=== PATIENT | female | born 1985 | race Caucasian/White ===

== ENCOUNTER 2016-09-04 19:05 | Emergency (ER) | payer OTHER ==
[~2016-09-04] VITALS: Ht 167.6 cm; Wt 120.5 kg
[~2016-09-04 19:05] MED LIST: CETI10CA PO; GUAI120S26 PO; IBUP-1542 PO; LORA-441 PO; PNV1TABL43 PO; ZOF8 PO
[2016-09-04 19:09] VITALS: Ht 167.6 cm; Wt 120.5 kg
[2016-09-04] MEDS ORDERED: KETOROLAC 60 MG INJ IM STA (20:08)
--- NOTE | 2016-09-04 20:18 | ERD ---
ER Documentation Chief Complaint Date/Time DATE: 09/04/16 TIME: 20:12 Chief Complaint headache w/ diziness x 2 days, headache w/ lights on HPI 31-year-old female complaining of headache 2 days. Describes it is a pressure- like sensation across her forehead and temples. Headache is not relieved by Tylenol, last dose, was taken yesterday. Patient also complaining of feeling dizzy, stating that she feels like she about to fall while walking. She has blurry vision, more blurry than usual. In addition patient complaining of shortness of breath on exertion. Patient stated that she has history of anemia , and alpha thalassemia trait. Denies fever or chills. Denies chest pain. Denies leg pain or swelling. ROS All systems reviewed and are negative except as per history of present illness. Medications Home Meds Active Scripts Acetaminophen/Caffeine (Excedrin Tension Headache Cplt) 1 Each Tablet, 1 EACH PO Q6, #30 TAB Prov:LISBETH MARC NP 09/04/16 Lorazepam* (Ativan*) 0.5 Mg Tablet, 0.5 MG PO BID Y for ANXIETY, #12 TAB Prov:HIRAM MALCOLM MD 05/10/15 Ondansetron Hcl* (Zofran* ODT) 8 mg -ODT Tab.disper, 8 MG PO Q6 Y for NAUSEA AND /OR VOMITING, #6 TAB Prov:HIRAM MALCOLM MD 05/10/15 Ibuprofen* (Ibuprofen*) 600 Mg Tablet, 600 MG PO Q6H Y for pa, #30 TAB Prov:FRANDY BEAVER NP 04/27/15 Cetirizine Hcl* (Zyrtec*) 10 Mg Capsule, 10 MG PO DAILY, #30 TAB.CHEW Prov:FRANDY BEAVER NP 04/27/15 Acndwyenfcy-D-Dtfiiemzrn Hb* (Guaifenesin* DM Syrup) 120 Ml Syrup, 10 ML PO Q4H Y for COUGH, #120 ML Prov:FRANDY BEAVER NP 04/27/15 Reported Medications Vit/Fe Fumarate/Fa* ( Vitamin Tablet*) 1 Tab Tablet, 1 TAB PO DAILY, TAB 08/16/14 Allergies Allergies: Coded Allergies: No Known Allergy (Verified , 10/25/14) PMhx/Soc History of mild anemia History of Surgery: No Anesthesia Reaction: No Hx Neurological Disorder: No Hx Respiratory Disorders: No Hx Cardiac Disorders: No Hx Psychiatric Problems: No Hx Miscellaneous Medical Probl: No Hx Alcohol Use: No Hx Substance Use: No Hx Tobacco Use: No Smoking Status: Never smoker Physical Exam Vitals Vital Signs Date Time Temp Pulse Resp B/P Pulse Ox O2 Delivery O2 Flow Rate FiO2 09/04/16 21:40 98.9 80 18 134/63 99 Room Air 09/04/16 21:30 80 09/04/16 19:09 98.5 101 20 174/77 99 Physical Exam General: Well-developed, well-nourished, conscious and coherent, in no distress Skin: Warm and dry without rash, good texture and turgor Head: Normocephalic without evidence of trauma Eyes: Sclera and conjunctivae normal; pupils equal, round, and reactive to light; extraocular movements are intact Neck: Supple without meningismus or adenopathy. Carotids are equal. Trachea midline. No bruits or JVD Chest: Normal AP diameter. Good expansion without retractions. Nontender. Lungs are clear to auscultate bilaterally with good tidal volume Heart: Regular rate and rhythm. No murmur, rub, or gallops heard Abdomen: Soft and nontender without masses, guarding, or rebound. Bowel sounds are active. No hepatosplenomegaly Extremities: Full range of motion. Good strength bilaterally. No clubbing, cyanosis, or edema. Peripheral pulses are intact. Sensation intact Neuro: Alert and oriented 4; GCS 15. Cranial nerves II - XII intact. Motor sensory exam nonfocal. Moves all extremities. Deep tendon reflexes 2+ in all extremities. Speech clear. No pronator drift. Gait steady. Result Diagram: 09/04/162021 Results 24 hrs Laboratory Tests Test 09/04/16 20:22 White Blood Count 18.210^3/ul Red Blood Count 5.4010^6/ul Hemoglobin 10.1g/dl Hematocrit 34.9% Mean Corpuscular Volume 64.6fl Mean Corpuscular Hemoglobin 18.7pg Mean Corpuscular Hemoglobin Concent 28.9g/dl Red Cell Distribution Width 19.9% Platelet Count 07048^3/UL Mean Platelet Volume 9.6fl Neutrophils % 71.7% Lymphocytes % 22.5% Monocytes % 3.6% Eosinophils % 1.4% Basophils % 0.3% Nucleated Red Blood Cells % 0.0/100WBC Neutrophils # 13.010^3/ul Lymphocytes # 4.110^3/ul Monocytes # 0.710^3/ul Eosinophils # 0.310^3/ul Basophils # 0.110^3/ul Nucleated Red Blood Cells # 0.010^3/ul Current Medications Medications (Trade) Dose Ordered Sig/Alexys Route PRN Reason Start Time Stop Time Status Last Admin Dose Admin Ketorolac Tromethamine (Toradol) 60 mg ONCE STAT IM 09/04/16 20:08 09/04/16 20:12 DC 09/04/16 20:23 Metoclopramide HCl (Reglan) 10 mg ONCE ONCE IM 09/04/16 20:30 09/04/16 20:31 DC 09/04/16 20:23 Diphenhydramine HCl (Benadryl) 50 mg ONCE ONCE IM 09/04/16 20:30 09/04/16 20:31 DC 09/04/16 20:23 Procedures/MDM Well-appearing 31-year-old female presented ED was complaining a headache. Toradol, Benadryl, and Reglan IM given to the patient in the ED. Patient reports improvement headache after the medications. Patient had normal neuro exam, she does have muscle tightness in her sternocleidomastoid and upper trapezius. Likely her headache is due to tension headache. Differentials considered: Migraine, cluster headache, tension headache, sinus or dental infection, TMJ syndrome, pseudotumor cerebri, meningitis, encephalitis , giant cell arteritis, glaucoma, subarachnoid hemorrhage, subdural or epidural hematoma, intracranial bleeding or tumor. Patient also complaining of shortness breath on exertion. She has history of anemia. CBC was obtained, she does have a mild anemia with hemoglobin at 10.1. EKG: Normal sinus rhythm, normal axis. No ST segment elevation or depression. No ectopic beats. No QT prolongation. No other EKG abnormalities. EKG read by Dr. Malcolm. Patient's heart rate was initially 101, it has reduced to 80 after rest and medication. PERC Criteria Assessment: Age > 50: No HR > 100: No 02 < 95%: No H/o DVT/PE: No Recent trauma/surgery: No Hemoptysis: No Exogenous Estrogen: No Unilateral Leg swelling: No Pretest probability > 15%: No [Less than 2% risk of PE. No further work up is necessary] Low suspicion for acute coronary syndrome, PE, pneumothorax, pneumonia, or aortic dissection. Patient appears well, stable for discharge and outpatient management. Medical decision making shared with patient and family. Education provided to patient and family. Patient and family expressed understanding of the plan. Medications on discharge: Excedrin tension headache. Follow-up: Primary care provider in 2-3 days or return to ED if worse. Departure Diagnosis: Primary Impression: Headache Headache type: tension-type Headache chronicity pattern: acute headache Intractability: not intractable Qualified Code: G44.209 - Acute non intractable tension-type headache Additional Impression: Anemia Anemia type: unspecified type Qualified Code: D64.9 - Anemia, unspecified type Condition: LISBETH Carvajal NP September 04, 2016 20:18
[2016-09-04] MEDS ORDERED: METOCLOPRAMIDE 10 MG INJ IM ONE (20:30)
[2016-09-04] MEDS ORDERED: DIPHENHYDRAMINE 50 MG INJ IM ONE (20:30)
[2016-09-04 20:31] LABS: ADD SCAN DIFF NO
[2016-09-04 20:33] LABS: ABNORMAL IP MESSAGE 1; BASOPHIL # 0.1 10^3/ul (0.0-0.1); BASOPHILS % 0.3 % (0.0-2.0); EOSINOPHILS # 0.3 10^3/ul (0.0-0.5); EOSINOPHILS % 1.4 % (0.0-7.0); HEMATOCRIT 34.9 % (37.0-47.0); HEMOGLOBIN 10.1 g/dl (12.0-16.0); LYMPHOCYTES # 4.1 10^3/ul (0.8-2.9); LYMPHOCYTES % 22.5 % (15.0-51.0); MEAN CORPUSCULAR HEMOGLOBIN 18.7 pg (29.0-33.0); MEAN CORPUSCULAR HGB CONC 28.9 g/dl (32.0-37.0); MEAN CORPUSCULAR VOLUME 64.6 fl (82.0-101.0); MEAN PLATELET VOLUME 9.6 fl (7.4-10.4); MONOCYTE # 0.7 10^3/ul (0.3-0.9); MONOCYTES % 3.6 % (0.0-11.0); NEUTROPHILS % 71.7 % (39.0-77.0); PLATELET COUNT 500 10^3/UL (140-415); RED CELL DISTRIBUTION WIDTH 19.9 % (11.5-14.5); WHITE BLOOD COUNT 18.2 10^3/ul (4.8-10.8)
[2016-09-04] MEDS ORDERED: ACET1TAB16 PO (21:32)
[2016-09-04 21:40] VITALS: BP 134/63; PULSE 80; RESP 18; TEMP 98.9
== END 2016-09-04 21:40 | disposition home or self-care (01) ==
LOC: FTE 19:05
DX: G44.209 Tension-type headache, unspecified, not intractable (principal); D64.9 Anemia, unspecified; R40.2412 Glasgow coma scale score 13-15, at arrival to emergency department; R94.31 Abnormal electrocardiogram [ECG] [EKG]
CPT/HCPCS: 85025; 93005; 96372; J1200; J1885; J2765; Z7502

== ENCOUNTER 2016-11-04 11:56 | Emergency (ER) | payer OTHER ==
[~2016-11-04] VITALS: Ht 157.5 cm; Wt 117.5 kg
[~2016-11-04 11:56] MED LIST changes: +ACET1TAB16 PO
[2016-11-04 12:03] VITALS: Ht 157.5 cm; Wt 117.5 kg
[2016-11-04] MEDS ORDERED: SOD CHLORIDE 0.9% 1,000 ML IV STA (12:52)
[2016-11-04] MEDS: ONDANSETRON 4 MG INJ IV STA ×2 (13:03→13:16)
[2016-11-04] MEDS: FAMOTIDINE 20 MG INJ IV STA ×2 (13:04→13:16)
[2016-11-04] MEDS: KETOROLAC 30 MG INJ IV STA ×2 (13:04→13:15)
[2016-11-04] MEDS ORDERED: METOCLOPRAMIDE 10 MG INJ IV ONE (13:30)
[2016-11-04] MEDS ORDERED: ACETAMINOPHEN 325 MG TAB PO ONE (13:30)
[2016-11-04 13:33] LABS: BASOPHILS % 0.3 % (0.0-2.0); EOSINOPHILS # 0.2 10^3/ul (0.0-0.5); EOSINOPHILS % 1.1 % (0.0-7.0); HEMATOCRIT 37.4 % (37.0-47.0); LYMPHOCYTES # 3.5 10^3/ul (0.8-2.9); LYMPHOCYTES % 23.4 % (15.0-51.0); MEAN CORPUSCULAR HEMOGLOBIN 19.4 pg (29.0-33.0); MEAN CORPUSCULAR HGB CONC 29.4 g/dl (32.0-37.0); MEAN PLATELET VOLUME 9.9 fl (7.4-10.4); MONOCYTE # 0.7 10^3/ul (0.3-0.9); MONOCYTES % 4.3 % (0.0-11.0); NEUTROPHIL # 10.5 10^3/ul (1.6-7.5); NEUTROPHILS % 70.4 % (39.0-77.0); PLATELET COUNT 404 10^3/UL (140-415); RED BLOOD COUNT 5.67 10^6/ul (4.20-5.40); RED CELL DISTRIBUTION WIDTH 19.7 % (11.5-14.5)
[2016-11-04 13:49] LABS: ALBUMIN 4.2 g/dl (3.3-4.9); ALBUMIN/GLOBULIN RATIO 1.1; CALCIUM 9.4 mg/dl (8.4-10.2); CREATININE 0.61 mg/dl (0.44-1.00)
[2016-11-04 14:03] LABS: ADD UMIC NO; UR ASCORBIC ACID NEGATIVE (NEGATIVE); UR BILIRUBIN (Dip) NEGATIVE (NEGATIVE); UR BLOOD (Dip) NEGATIVE (NEGATIVE); UR CLARITY CLEAR (CLEAR); UR COLOR STRAW (YELLOW); UR GLUCOSE (Dip) NEGATIVE (NEGATIVE); UR KETONES (Dip) NEGATIVE (NEGATIVE); UR LEUKOCYTE ESTERASE (Dip) NEGATIVE Leu/ul (NEGATIVE); UR NITRITE (Dip) NEGATIVE (NEGATIVE); UR SPECIFIC GRAVITY (Dip) 1.003 (1.003-1.030); UR TOTAL PROTEIN (Dip) NEGATIVE (NEGATIVE); UR UROBILINOGEN (Dip) NEGATIVE (NEGATIVE)
--- NOTE | 2016-11-04 14:19 | RADRPT ---
PROCEDURE: US OB. CLINICAL INDICATION: TECHNIQUE: Transabdominal and transvaginal views of the pelvis are available for review. COMPARISON: No prior studies are available for comparison. FINDINGS: An intrauterine gestational sac containing a pole and yolk sac is present. The crown-rump morgan gth measures 5.3 cm which corresponds to a gestational age of 12 weeks 0 days. heart rate:161 bpm Ultrasound estimated gestational age:12 weeks 0 days EGD: 05/19/2017 No ovarian or adnexal mass lesion is seen. There is no free fluid. IMPRESSION: 1. Single live intrauterine with an estimated gestational age of 12 weeks 0 days. 2. AKSHAT of 05/19/2017 RPTAT: H[facility] .Libra Coombs MD, Date Time Electronically viewed and signed by .Libra Coombs MD, on 11/04/2016 14:19 .M/
--- NOTE | 2016-11-04 14:21 | ERD ---
ER Documentation Chief Complaint Date/Time DATE: 11/04/16 Chief Complaint Nausea, Vomiting, Nasal congestion, Cough HPI The patient is a 31-year-old female who presents to the Emergency Department with complaint of cough, congestion, nausea and vomiting. The patient reports that three days ago she developed nasal congestion, with associated mildly- productive cough of clear-colored sputum, body aches, fevers and sore throat. She notes a subjective tactile fever last night, though did not check her temperature with a thermometer. She otherwise denies any ear pain, neck pain, neck stiffness or new rashes. Denies wheezing, stridor, or shortness of breath. Denies chest pain or palpitations. She admits to several sick contacts with similar symptoms over the past week. Additionally, the patient reports that she has been experiencing unrelated nausea and vomiting for the past week. She denies any exacerbating or alleviating factors. Denies any associated abdominal pain, pelvic pain, dysuria, hematuria, flank pain, vaginal bleeding or new vaginal discharge. The patient's last menstrual period was 07/15/2016. Since, she has had several episodes of spotting, but no formal period. However, she notes no , as she took a test several weeks ago, which was noted to be negative. No other complaints at this time. ROS All systems reviewed and are negative except as per history of present illness. Medications Home Meds Active Scripts Acetaminophen* (Tylenol*) 325 Mg Tablet, 1 TAB PO Q6 Y for PAIN AND OR ELEVATED TEMP, #20 TAB Prov:DALILA VALDES PA-C 11/04/16 Azithromycin* (Zithromax*) 250 Mg Tablet, 250 MG PO .TRECK DIRECTED, #6 TAB TAKE 500 MG (2 TABS) THE FIRST DAY THEN 250 MG (1 TAB) DAYS 2-5 Prov:DALILA VALDES PA-C 11/04/16 Acetaminophen/Caffeine (Excedrin Tension Headache Cplt) 1 Each Tablet, 1 EACH PO Q6, #30 TAB Prov:LISBETH MARC NP 09/04/16 Lorazepam* (Ativan*) 0.5 Mg Tablet, 0.5 MG PO BID Y for ANXIETY, #12 TAB Prov:HIRAM DOUGLAS MD 05/10/15 Ondansetron Hcl* (Zofran* ODT) 8 mg -ODT Tab.disper, 8 MG PO Q6 Y for NAUSEA AND /OR VOMITING, #6 TAB Prov:HIRAM DOUGLAS MD 05/10/15 Ibuprofen* (Ibuprofen*) 600 Mg Tablet, 600 MG PO Q6H Y for pa, #30 TAB Prov:FRANDY BEAVER NP 04/27/15 Cetirizine Hcl* (Zyrtec*) 10 Mg Capsule, 10 MG PO DAILY, #30 TAB.CHEW Prov:FRANDY BEAVER NP 04/27/15 Pwvvezjdppa-I-Umevznftkx Hb* (Guaifenesin* DM Syrup) 120 Ml Syrup, 10 ML PO Q4H Y for COUGH, #120 ML Prov:FRANDY BEAVER NP 04/27/15 Reported Medications Vit/Fe Fumarate/Fa* ( Vitamin Tablet*) 1 Tab Tablet, 1 TAB PO DAILY, TAB 08/16/14 Allergies Allergies: Coded Allergies: No Known Allergy (Verified , 11/04/16) PMhx/Soc History of Surgery: No Anesthesia Reaction: No Hx Neurological Disorder: No Hx Respiratory Disorders: No Hx Cardiac Disorders: No Hx Psychiatric Problems: No Hx Miscellaneous Medical Probl: No Hx Alcohol Use: No Hx Substance Use: No Hx Tobacco Use: No Smoking Status: Never smoker Physical Exam Vitals Vital Signs Date Time Temp Pulse Resp B/P Pulse Ox O2 Delivery O2 Flow Rate FiO2 11/04/16 12:03 98.3 79 18 127/70 Physical Exam GENERAL: Well-developed, well-nourished, in no acute distress HEENT: Head is normocephalic, atraumatic. No scleral pallor or icterus. Pupils equal, round and reactive to light. Extraocular movements intact. Conjunctiva pink. Nasal congestion. Bilaterally tympanic membranes are clear with no evidence of erythema, effusion or dulling of the light reflex. Moist mucous membranes. No pharyngeal erythema or exudates. Uvula is midline. NECK: Supple. No masses, no tenderness, no lymphadenopathy. Trachea midline. No nuchal rigidity. Full range of motion. RESPIRATORY: Prolonged expiratory phase. No rales, rhonchi or wheezing. Symmetric expansion. No accessory muscle use. Normal expiratory effort. Speaking in full sentences. CARDIOVASCULAR: Regular rate and rhythm. S1 and S2 normal. No murmurs, rubs, or gallops. GASTROINTESTINAL: Abdomen is soft, nontender, and nondistended. No guarding, no rebound tenderness. Normal bowel sounds. No gross peritonitis. Negative Arevalo' s sign. No tenderness at McBurney's point. FLANK: No CVA tenderness, no mass or swelling. BACK: No midline tenderness. EXTREMITIES: No clubbing, cyanosis, or edema. Normal skin perfusion. Moving all extremities. Muscle tone is normal. No focal swelling or erythema. Distal pulses are palpable, 2+ bilaterally. Capillary refill is less than 2 seconds. NEUROLOGIC: The patient is alert, awake, and oriented x 3. No focal neurologic deficits. INTEGUMENT: Skin is clean, dry and intact. No rashes, lesions or petechiae present. PSYCHIATRIC: Appropriate; Cooperative. Result Diagram: 11/04/16 1318 11/04/16 1318 Results 24 hrs Laboratory Tests Test 11/04/16 13:00 11/04/16 13:18 Urine Color STRAW Urine Clarity CLEAR Urine pH 8.0 Urine Specific Beaver 1.003 Urine Ketones NEGATIVEmg/dL Urine Nitrite NEGATIVEmg/dL Urine Bilirubin NEGATIVEmg/dL Urine Urobilinogen NEGATIVEmg/dL Urine Leukocyte Esterase NEGATIVELeu/ul Urine Hemoglobin NEGATIVEmg/dL Urine Glucose NEGATIVEmg/dL Urine Total Protein NEGATIVEmg/dl Beta HCG, Quantitative 64533.0mIU/ml White Blood Count 15.010^3/ul Red Blood Count 5.6710^6/ul Hemoglobin 11.0g/dl Hematocrit 37.4% Mean Corpuscular Volume 66.0fl Mean Corpuscular Hemoglobin 19.4pg Mean Corpuscular Hemoglobin Concent 29.4g/dl Red Cell Distribution Width 19.7% Platelet Count 85197^3/UL Mean Platelet Volume 9.9fl Neutrophils % 70.4% Lymphocytes % 23.4% Monocytes % 4.3% Eosinophils % 1.1% Basophils % 0.3% Nucleated Red Blood Cells % 0.0/100WBC Neutrophils # 10.510^3/ul Lymphocytes # 3.510^3/ul Monocytes # 0.710^3/ul Eosinophils # 0.210^3/ul Basophils # 0.010^3/ul Nucleated Red Blood Cells # 0.010^3/ul Sodium Level 144mmol/L Potassium Level 4.0mmol/L Chloride Level 102mmol/L Carbon Dioxide Level 27mmol/L Anion Gap 19 Blood Urea Nitrogen 6mg/dl Creatinine 0.61mg/dl Glucose Level 89mg/dl Calcium Level 9.4mg/dl Total Bilirubin 0.0mg/dl Direct Bilirubin 0.00mg/dl Indirect Bilirubin 0.0mg/dl Aspartate Amino Transf (AST/SGOT) 16IU/L Alanine Aminotransferase (ALT/SGPT) 20IU/L Alkaline Phosphatase 100IU/L Total Protein 8.0g/dl Albumin 4.2g/dl Globulin 3.80g/dl Albumin/Globulin Ratio 1.10 Lipase 65U/L Current Medications Medications (Trade) Dose Ordered Sig/Alexys Route PRN Reason Start Time Stop Time Status Last Admin Dose Admin Sodium Chloride (NS) 1,000 ml @ 1,000 mls/hr Q1H STAT IV 11/04/16 12:52 11/04/16 13:51 DC 11/04/16 13:03 Ondansetron HCl (Zofran Inj) 4 mg ONCE STAT IV 11/04/16 12:52 11/04/16 13:18 DC Famotidine (Pepcid Iv) 20 mg ONCE STAT IV 11/04/16 12:52 11/04/16 12:54 DC Ketorolac Tromethamine (Toradol) 30 mg ONCE STAT IV 11/04/16 12:52 11/04/16 13:18 DC Metoclopramide HCl (Reglan) 10 mg ONCE ONCE IV 11/04/16 13:30 11/04/16 13:31 DC 11/04/16 13:25 Acetaminophen (Tylenol Tab) 650 mg ONCE ONCE PO 11/04/16 13:30 11/04/16 13:31 DC 11/04/16 13:25 Procedures/MDM DIAGNOSTIC TESTS AND INTERPRETATION: Urine : POSITIVE Beta hCG quantitative: 51,763. PROCEDURE: US OB. CLINICAL INDICATION: TECHNIQUE: Transabdominal and transvaginal views of the pelvis are available for review. COMPARISON: No prior studies are available for comparison. FINDINGS: An intrauterine gestational sac containing a pole and yolk sac is present. The crown-rump length measures 5.3 cm which corresponds to a gestational age of 12 weeks 0 days. heart rate: 161 bpm Ultrasound estimated gestational age: 12 weeks 0 days EGD: 05/19/2017 No ovarian or adnexal mass lesion is seen. There is no free fluid. IMPRESSION: 1. Single live intrauterine with an estimated gestational age of 12 weeks 0 days. 2. AKSHAT of 05/19/2017 .Libra Coombs MD, MD Date Time Electronically viewed and signed by .Libra Coombs MD, MD on 11/04/2016 14:19 MEDICAL DECISION MAKING: This is a 31-year-old female presenting to the Emergency Department complaining of fever, generalized body aches, nasal congestion and productive cough. On physical examination the patient had a prolonged expiratory phase, but with equal breath sounds auscultated. No rales , rhonchi or wheezing were noted. She was afebrile with no tachycardia, no tachypnea, no signs of respiratory distress. She had no retractions, no increased work of breathing, no nasal flaring, no accessory muscle use. She exhibited no altered mental status, neurologic deficits or meningeal signs. Differential diagnosis includes, but is not limited to, pneumonia, pulmonary edema, sinusitis, foreign body, pertussis, upper respiratory infection, asthma, allergic rhinitis, GERD, bronchitis, allergic reaction, influenza, pharyngitis. Clinical presentation most consistent with acute bronchitis, possibly bacterial in etiology. No evidence of apnea, respiratory failure, dehydration, meningitis or other life-threatening etiology. The patient is well-appearing. He had no clinical evidence of pneumonia. Patient's neck was supple, with no altered mental status, and therefore I doubt meningitis. Oropharynx was clear, with no erythema, exudates, petechiae, no associated cervical lymphadenopathy, and therefore I doubt streptococcal pharyngitis. Tympanic membranes were clear bilaterally with no erythema or bulging noted, and therefore I doubt otitis media. x Patient also reported recent nausea and vomiting. Abdominal examination benign, with no evidence of acute/surgical abdomen. Urinalysis with no nitrites, no urine leukocyte esterase, no evidence of urinary tract infection or pyelonephritis. Urine noted to be positive. possibly the cause of the patient's nausea/vomiting. Beta hCG 51,763. Patient is Rh (+). Ultrasound imaging performed, which revealed a live intrauterine gestation of 12 weeks 0 days. After rest and administration of fluids and Reglan, the patient reports no new complaints and reports feeling better, with no shortness of breath or respiratory distress. Upon my review and interpretation of the patient's presentation and ER course, I believe the patient's symptoms are most consistent with acute bronchitis, possibly bacterial in etiology. Given positive status, will forego x- ray imaging. However, will treat patient for possible bacterial etiology with Z- alix. At this time, the patient is in stable condition and not experiencing any current nausea, vomiting, shortness of breath, wheezing or any signs of respiratory distress, and therefore she can be discharged home with strict return precautions for signs of deteriorating or worsening condition. The patient is advised to follow up with an SERVICE CONSULTANT within 2-3 days for reevaluation and further management or return to the ER sooner for any worsening symptoms. I shared my medical decision making and plan with the patient at length and in great detail, and she verbally understands and agrees with the plan for further observation and care as an outpatient. At the time of discharge all questions were answered. Departure Diagnosis: Primary Impression: First trimester Additional Impressions: Acute bronchitis Bronchitis organism: unspecified organism Qualified Code: J20.9 - Acute bronchitis, unspecified organism Nausea and vomiting Vomiting type: unspecified Vomiting Intractability: non-intractable Qualified Code: R11.2 - Non-intractable vomiting with nausea, unspecified vomiting type Condition: Stable Patient Instructions: Acute Bronchitis, Adapting to : First Trimester , , New Dx Additional Instructions: Follow up with your primary medical provider and SERVICE CONSULTANT within 2-3 days for reevaluation and further management. Return to the ED sooner for any new or worsening symptoms. DALILA VALDES PA-C Nov 04, 2016 14:21
[2016-11-04] MEDS ORDERED: ACET325T33 PO (14:30)
[2016-11-04] MEDS ORDERED: AZIT250T94 PO (14:30)
== END 2016-11-04 14:47 | disposition home or self-care (01) ==
LOC: FTE 11:56
DX: O99.511 Diseases of the respiratory system complicating pregnancy, first trimester (principal); J20.9 Acute bronchitis, unspecified; Z3A.12 12 weeks gestation of pregnancy
CPT/HCPCS: 36415; 76801; 80053; 81003; 83690; 84702; 85025; 86900; 86901; 96374; J2765; J7030; Z7502; Z7610; J1885; J2405

== ENCOUNTER 2016-12-04 21:40 | Emergency (ER) | payer OTHER ==
[~2016-12-04] VITALS: Ht 162.6 cm; Wt 117.0 kg
[~2016-12-04 21:40] MED LIST changes: +ACET325T33 PO; +AZIT250T94 PO
[2016-12-04 21:45] VITALS: Ht 162.6 cm; Wt 117.0 kg
--- NOTE | 2016-12-04 23:04 | ERD ---
ER Documentation Chief Complaint Date/Time DATE: 12/04/16 TIME: 23:01 Chief Complaint 16 wks , pelvic pain x 1 day HPI 16 week w/ pelvic pain, pain is worse with walking, pt has not taken any Tylenol of symptomatic relief denies vomiting, fever, vaginal bleeding or D/ C symptoms started this morning. ROS All systems reviewed and are negative except as per history of present illness. Medications Home Meds Active Scripts Acetaminophen* (Tylenol*) 325 Mg Tablet, 1 TAB PO Q6 Y for PAIN AND OR ELEVATED TEMP, #20 TAB Prov:DALILA VALDES PA-C 11/04/16 Azithromycin* (Zithromax*) 250 Mg Tablet, 250 MG PO .ZPACK DIRECTED, #6 TAB TAKE 500 MG (2 TABS) THE FIRST DAY THEN 250 MG (1 TAB) DAYS 2-5 Prov:DALILA VALDES PA-C 11/04/16 Acetaminophen/Caffeine (Excedrin Tension Headache Cplt) 1 Each Tablet, 1 EACH PO Q6, #30 TAB Prov:LISBETH MARC NP 09/04/16 Lorazepam* (Ativan*) 0.5 Mg Tablet, 0.5 MG PO BID Y for ANXIETY, #12 TAB Prov:HIRAM DOUGLAS MD 05/10/15 Ondansetron Hcl* (Zofran* ODT) 8 mg -ODT Tab.disper, 8 MG PO Q6 Y for NAUSEA AND /OR VOMITING, #6 TAB Prov:HIRAM DOUGLAS MD 05/10/15 Ibuprofen* (Ibuprofen*) 600 Mg Tablet, 600 MG PO Q6H Y for pa, #30 TAB Prov:PAMELA HAMM NP 04/27/15 Cetirizine Hcl* (Zyrtec*) 10 Mg Capsule, 10 MG PO DAILY, #30 TAB.CHEW Prov:PAMELA HAMM NP 04/27/15 Gdyhwillnxq-Z-Hjsimhfeag Hb* (Guaifenesin* DM Syrup) 120 Ml Syrup, 10 ML PO Q4H Y for COUGH, #120 ML Prov:PAMELA HAMM NP 04/27/15 Reported Medications Vit/Fe Fumarate/Fa* ( Vitamin Tablet*) 1 Tab Tablet, 1 TAB PO DAILY, TAB 5/4/15 Allergies Allergies: Coded Allergies: No Known Allergy (Verified , 11/04/16) PMhx/Soc Medical and Surgical Hx: pt denies Medical Hx, pt denies Surgical Hx History of Surgery: No Anesthesia Reaction: No Hx Neurological Disorder: No Hx Respiratory Disorders: No Hx Cardiac Disorders: No Hx Psychiatric Problems: No Hx Miscellaneous Medical Probl: No Hx Alcohol Use: No Hx Substance Use: No Hx Tobacco Use: No Smoking Status: Never smoker Physical Exam Vitals Vital Signs Date Time Temp Pulse Resp B/P Pulse Ox O2 Delivery O2 Flow Rate FiO2 12/04/16 21:45 97.8 89 20 141/58 99 VSS trage notes reviewed Physical Exam Const: Well-nourished well-appearing well-hydrated no acute Head: Eyes: ENT: Neck: Resp: Respirations even and unlabored no respiratory distress Cardio: Abd: 's abdomen Skin: Back: No CVA tenderness Ext: Neur: Awake and alert Psych: Normal Mood and Affect Result Diagram: 12/04/162 Results 24 hrs Laboratory Tests Test 12/04/16 23:00 12/04/16 23:12 Urine Color YELLOW Urine Clarity SLIGHTLY CLOUDY Urine pH 6.0 Urine Specific [place] 1.019 Urine Ketones NEGATIVEmg/dL Urine Nitrite NEGATIVEmg/dL Urine Bilirubin NEGATIVEmg/dL Urine Urobilinogen NEGATIVEmg/dL Urine Leukocyte Esterase NEGATIVELeu/ul Urine Microscopic RBC 1/HPF Urine Microscopic WBC 1/HPF Urine Squamous Epithelial Cells FEW/HPF Urine Bacteria FEW/HPF Urine Mucus FEW/HPF Urine Hemoglobin NEGATIVEmg/dL Urine Glucose NEGATIVEmg/dL Urine Total Protein NEGATIVEmg/dl White Blood Count 15.210^3/ul Red Blood Count 5.2610^6/ul Hemoglobin 10.4g/dl Hematocrit 34.6% Mean Corpuscular Volume 65.8fl Mean Corpuscular Hemoglobin 19.8pg Mean Corpuscular Hemoglobin Concent 30.1g/dl Red Cell Distribution Width 20.4% Platelet Count 42945^3/UL Mean Platelet Volume 10.2fl Neutrophils % 70.0% Lymphocytes % 25.1% Monocytes % 3.0% Eosinophils % 1.1% Basophils % 0.3% Nucleated Red Blood Cells % 0.0/100WBC Neutrophils # (Manual) 1110^3/ul Lymphocytes # 3.810^3/ul Monocytes # 0.510^3/ul Eosinophils # 0.210^3/ul Basophils # 0.110^3/ul Nucleated Red Blood Cells # 0.010^3/ul Beta HCG, Quantitative 07142.0mIU/ml Current Medications Medications (Trade) Dose Ordered Sig/Alexys Route PRN Reason Start Time Stop Time Status Last Admin Dose Admin Acetaminophen (Tylenol Tab) 650 mg ONCE ONCE PO 12/04/16 23:30 12/04/16 23:31 DC 12/04/16 23:14 Interpretation text CBC shows no evidence of hemorrhage or infection W BC's are elevated this is not an abnormal finding in Urinalysis negative for evidence of infection no leukocytosis nitrates or hematuria. Procedures/MDM PROCEDURE: US OB. CLINICAL INDICATION: 31 years of age, female. Pain. TECHNIQUE: Multiple sonographic images of the pelvis were obtained. Transabdominal imaging only was performed. The images were reviewed on a PACS workstation. Image quality: Satisfactory. COMPARISON: Obstetrical ultrasound November 04, 2016 FINDINGS: Fields : Number of fetuses: 1 GENERAL EVALUATION: Cardiac activity: Present. FHR 152 bpm Presentation: Cephalic Placenta: Placenta site: Anterior. Amniotic fluid: Grossly normal. Maximum vertical pocket 3.6 cm Cervix was not evaluated. DATING: EGA by prior US: 16 weeks 2 days AKSHAT by prior US: May 19, 2017 BIOMETRY: BPD = 3.6 cm , 17 weeks 0 days. HC = 13.1 cm , 16 weeks 5 days. AC = 11.7 cm , 17 weeks 3 days. FL = 2.4 cm , 17 weeks 1 day. Composite sonographic age: 17 weeks 1 day plus or minus 1 week Estimated due date by ultrasound measurements: May 13, 2017 EFW 187 grams that is at the 95 percentile for gestational age. ANATOMY: Not evaluated. IMPRESSION: 1. Single living fetus in cephalic presentation. 2. There has been the expected interval growth since the previous obstetrical ultrasound. Estimated gestational age on today's ultrasound is concordant with estimated gestational age by prior ultrasound within 6 days. Estimated gestational age based on prior ultrasound is 16 weeks 2 days and estimated gestational age on today's ultrasound is 17 weeks 1 day. 3. Estimated weight 187 grams that is at the 95 percentile for gestational age. 4. Amniotic fluid volume is grossly normal. 5. Anterior placenta. 6. Cervix was not evaluated. If cervical length is required, recommend dedicated ultrasound of the cervix. Findings were discussed with Pamela Hamm RN in the ED by Dr. Vero Quezada on December 05, 2016 at 12:34 AM. Electronically viewed and signed by Zoltan Quezada, Physician on 12/05/2016 00: 40 This 31-year-old female presents to the emergency department with complaint of pelvic pain., Patient is 16 weeks , has appointment with MANAGING CONSULTANT tomorrow, reports pain without vaginal bleeding or discharge. I have low clinical suspicion for a threatened miscarriage, gastritis, cholecystitis or pancreatitis. Patient is fully evaluated with CBC with WBCs 15 this is not an abnormality in , patient is anemic, and urinalysis is negative for evidence of infection. Beta quant is normal for 16 weeks of at 01024.0mIU/m patient was given Tylenol for pain, pain is likely related to , patient will be discharged home instructions to keep appointment with INTERNET CONSULTANT tomorrow. Use [id number] Tylenol for pain control. Return to emergency department for vaginal bleeding, or worsening of pain symptoms. I feel the patient is stable for discharge at this time. I have discussed results , examination findings, the treatment plan with the patient and family present prior to discharge. Indications for emergent reevaluation, side effects of medication were also discussed. All questions were answered. Patient verbalizes understanding and agrees with plan of care. Departure Diagnosis: Primary Impression: Pelvic pain during Condition: Good Patient Instructions: Pelvic Pain In : Unclear (2-3 Trimester) Additional Instructions: Thank you for for coming to [facility] for your care today. Please ask your nurse or provider if you have questions about your care today and do not leave until all your questions have been answered. Please use any medications given as directed and follow-up with your doctor (or the doctor you were referred to) in the next 2-3 days. If you do not have a primary care doctor you may follow up at the [facility] (listed below). You may also use motrin and tylenol as needed for fever and/or pain unless instructed otherwise by your provider or nurse. Indications for more urgent follow-up have been discussed, but you may return to the Emergency Department at ANY time for any worrisome or worsening symptoms. If you have abdominal pain, please know that no test or exam you received is perfect and you should follow up within 8 hours for continued pain. If you had any imaging studies today, such as an X-Ray or CT Scan, these studies will be reviewed later by a radiologist. You will be called if there are important findings that were not identified today, so make sure the contact information you provided at registration is correct. If you received any narcotic pain control medicine today, such as Vicodin, Morphine or Dilaudid, your coordination and judgment may be affected for a number of hours. Please do not drive or operate heavy machinery, and you may want someone to assist you at home. If you were given a prescription for narcotic medication, be aware that it is very addictive- use sparingly and only if necessary. FAROOQ AWAD Dec 04, 2016 23:03
[2016-12-04] MEDS ORDERED: ACETAMINOPHEN 325 MG TAB PO ONE (23:30)
[2016-12-04 23:31] LABS: BASOPHIL # 0.1 10^3/ul (0.0-0.1); BASOPHILS % 0.3 % (0.0-2.0); EOSINOPHILS # 0.2 10^3/ul (0.0-0.5); EOSINOPHILS % 1.1 % (0.0-7.0); HEMATOCRIT 34.6 % (37.0-47.0); HEMOGLOBIN 10.4 g/dl (12.0-16.0); LYMPHOCYTES # 3.8 10^3/ul (0.8-2.9); LYMPHOCYTES % 25.1 % (15.0-51.0); MEAN CORPUSCULAR HEMOGLOBIN 19.8 pg (29.0-33.0); MEAN CORPUSCULAR HGB CONC 30.1 g/dl (32.0-37.0); MEAN CORPUSCULAR VOLUME 65.8 fl (82.0-101.0); MEAN PLATELET VOLUME 10.2 fl (7.4-10.4); MONOCYTE # 0.5 10^3/ul (0.3-0.9); PLATELET COUNT 366 10^3/UL (140-415); RED BLOOD COUNT 5.26 10^6/ul (4.20-5.40); RED CELL DISTRIBUTION WIDTH 20.4 % (11.5-14.5); WHITE BLOOD COUNT 15.2 10^3/ul (4.8-10.8)
[2016-12-04 23:51] LABS: ADD UMIC NO; UR ASCORBIC ACID NEGATIVE (NEGATIVE); UR BACTERIA FEW /HPF (NONE SEEN); UR BILIRUBIN (Dip) NEGATIVE (NEGATIVE); UR BLOOD (Dip) NEGATIVE (NEGATIVE); UR CLARITY SLIGHTLY CLOUDY (CLEAR); UR COLOR YELLOW (YELLOW); UR GLUCOSE (Dip) NEGATIVE (NEGATIVE); UR KETONES (Dip) NEGATIVE (NEGATIVE); UR LEUKOCYTE ESTERASE (Dip) NEGATIVE Leu/ul (NEGATIVE); UR MUCUS FEW /HPF (NONE SEEN); UR NITRITE (Dip) NEGATIVE (NEGATIVE); UR RBC 1 /HPF (0-5); UR SPECIFIC GRAVITY (Dip) 1.019 (1.003-1.030); UR SQUAMOUS EPITHELIAL CELL FEW /HPF (FEW); UR TOTAL PROTEIN (Dip) NEGATIVE (NEGATIVE); UR UROBILINOGEN (Dip) NEGATIVE (NEGATIVE)
--- NOTE | 2016-12-05 00:40 | RADRPT ---
PROCEDURE: US OB. CLINICAL INDICATION: 31 years of age, female. Pain. TECHNIQUE: Multiple sonographic images of the pelvis were obtained. Transabdominal imaging only w as performed. The images were reviewed on a PACS workstation. Image quality: Satisfactory. COMPARISON: Obstetrical ultrasound November 04, 2016 FINDINGS: Fields : Number of fetuses: 1 GENERAL EVALUATION: Cardiac activity: Present. FHR 152 bpm Presentation: Cephalic Placenta: Placenta site: Anterior. Amniotic fluid: Grossly normal. Maximum vertical pocket 3.6 cm Cervix was not evaluated. DATING: EGA by prior US: 16 weeks 2 days AKSHAT by prior US: May 19, 2017 BIOMETRY: BPD = 3.6 cm , 17 weeks 0 days. HC = 13.1 cm , 16 weeks 5 days. AC = 11.7 cm , 17 weeks 3 days. FL = 2.4 cm , 17 weeks 1 day. Composite sonographic age: 17 weeks 1 day plus or minus 1 week Estimated due date by ultrasound measurements: May 13, 2017 EFW 187 grams that is at the 95 percentile for gestational age. ANATOMY: Not evaluated. IMPRESSION: 1. Single living fetus in cephalic presentation. 2. There has been the expected interval growth since the previous obstetrical ultrasound. Estimated gestational age on today's ultrasound is concordant with estimated gestational age by prior ultraso und within 6 days. Estimated gestational age based on prior ultrasound is 16 weeks 2 days and estim ated gestational age on today's ultrasound is 17 weeks 1 day. 3. Estimated weight 187 grams that is at the 95 percentile for gestational age. 4. Amniotic fluid volume is grossly normal. 5. Anterior placenta. 6. Cervix was not evaluated. If cervical length is required, recommend dedicated ultrasound of the cervix. Findings were discussed with Pamela Hamm RN in the ED by Dr. Vero Quezada on December 05, 2016 at 12 :34 AM. RPTAT: HCTS Zoltan Quezada, Physician Date Time Electronically viewed and signed by Zoltan Quezada Physician on 12/05/2016 00:40 CS/
[2016-12-05] MEDS ORDERED: ACET500C5 PO (01:20)
== END 2016-12-05 01:31 | disposition home or self-care (01) ==
LOC: FTE 21:40
DX: O26.892 Other specified pregnancy related conditions, second trimester (principal); R10.2 Pelvic and perineal pain; Z3A.17 17 weeks gestation of pregnancy
CPT/HCPCS: 36415; 76801; 81001; 84702; 85025; Z7502; Z7610; 81003

== ENCOUNTER 2017-01-07 12:04 | Outpatient (CLI) | payer OTHER ==
[~2017-01-07] VITALS: Ht 157.5 cm; Wt 115.7 kg
[~2017-01-07 12:04] MED LIST changes: +ACET500C5 PO
[2017-01-07 12:12] VITALS: BP 147/70; PULSE 80; RESP 18
[2017-01-07 12:13] VITALS: Ht 157.5 cm; Wt 115.7 kg
[2017-01-07 13:19] LABS: ADD UMIC YES; UR ASCORBIC ACID NEGATIVE (NEGATIVE); UR BACTERIA FEW /HPF (NONE SEEN); UR BILIRUBIN (Dip) NEGATIVE (NEGATIVE); UR BLOOD (Dip) NEGATIVE (NEGATIVE); UR CLARITY CLOUDY (CLEAR); UR COLOR YELLOW (YELLOW); UR GLUCOSE (Dip) NEGATIVE (NEGATIVE); UR KETONES (Dip) NEGATIVE (NEGATIVE); UR LEUKOCYTE ESTERASE (Dip) 2+ Leu/ul (NEGATIVE); UR MUCUS FEW /HPF (NONE SEEN); UR NITRITE (Dip) NEGATIVE (NEGATIVE); UR RBC 1 /HPF (0-5); UR SPECIFIC GRAVITY (Dip) 1.016 (1.003-1.030); UR SQUAMOUS EPITHELIAL CELL MANY /HPF (FEW); UR TOTAL PROTEIN (Dip) NEGATIVE (NEGATIVE); UR UROBILINOGEN (Dip) 2+ mg/dL (NEGATIVE)
--- NOTE | 2017-01-07 13:22 | RADRPT ---
PROCEDURE: US OB. CLINICAL INDICATION: Low ANTHONY, cramping, induced hypertension TECHNIQUE: Transabdominal views of the pelvis are available for review. COMPARISON: None. FINDINGS: The cervix is closed and measures 3.1 cm in length. There is a single intrauterine gestation in a vertex position. The heart rate is present at 154 bpm. The placenta is anterior. There is no evidence of placenta previa or a placental abruption. There is a normal amount of amniotic fluid with a maximum vertical pocket of 3.9 cm. RPTAT: AA IMPRESSION: Normal amount of amniotic fluid with a maximum vertical pocket of 3.9 cm. The cervix is closed and measures 3.1 cm in length. Physician Lacie Date Time Electronically viewed and signed by Physician Lacie on 01/07/2017 13:22 /
[2017-01-07] MEDS ORDERED: FER325 PO (13:31)
[2017-01-07 13:47] LABS: BASOPHILS % 0.2 % (0.0-2.0); EOSINOPHILS # 0.1 10^3/ul (0.0-0.5); EOSINOPHILS % 0.8 % (0.0-7.0); HEMATOCRIT 34.2 % (37.0-47.0); HEMOGLOBIN 10.2 g/dl (12.0-16.0); LYMPHOCYTES # 2.4 10^3/ul (0.8-2.9); LYMPHOCYTES % 19.3 % (15.0-51.0); MEAN CORPUSCULAR HEMOGLOBIN 20.2 pg (29.0-33.0); MEAN CORPUSCULAR HGB CONC 29.8 g/dl (32.0-37.0); MEAN CORPUSCULAR VOLUME 67.7 fl (82.0-101.0); MEAN PLATELET VOLUME 10.3 fl (7.4-10.4); MONOCYTE # 0.4 10^3/ul (0.3-0.9); MONOCYTES % 3.2 % (0.0-11.0); NEUTROPHIL # 9.4 10^3/ul (1.6-7.5); NEUTROPHILS % 76.1 % (39.0-77.0); PLATELET COUNT 345 10^3/UL (140-415); RED BLOOD COUNT 5.05 10^6/ul (4.20-5.40); WHITE BLOOD COUNT 12.4 10^3/ul (4.8-10.8)
[2017-01-07 14:10] LABS: ALBUMIN 3.5 g/dl (3.3-4.9); ALBUMIN/GLOBULIN RATIO 0.87; CREATININE 0.64 mg/dl (0.44-1.00); POTASSIUM 3.8 mmol/L (3.5-5.1); TOTAL PROTEIN 7.5 g/dl (6.1-8.1)
[2017-01-07] MEDS ORDERED: ACETAMINOPHEN 325 MG TAB PO ONE (15:00)
--- NOTE | 2017-01-07 15:58 | TRIAGE ---
OB Triage Datetime Report Generated by CPN: 01/07/2017 15:57 Datetime: 01/07/2017 15:30 Pain Assessment Pain Scale: 2 Pain Presence: Intermittent Pain Type: Ache Pain Location: Head Pain Relief Measures: Comfort Measures Pain Assessment Comments: PT. STATES HER HEADACHE IS MUCH BETTER Datetime: 01/07/2017 12:53 Labor Evaluation Frequency: 0 Monitor Mode: External Pattern: Normal: <= 5 Contractions in 10 Minutes Resting Tone [place]: Relaxed Contraction Comments: UNABLE TO ASSESS ANY UC'S ON MONITOR. PT. DENIES FEELING CONTRACTIONS Datetime: 01/07/2017 12:27 Stage of : OB Triage Assessment Type: Admission Assessment Maternal Assessment Level of Consciousness: Fully Conscious DTR's/Clonus: DTRs 2+; No Clonus Headache: Temporal Blurred Vision: No Respiratory Effort: Unlabored; Regular Rhythm; Equal Expansion Breath Sounds, Left: Clear and Equal Breath Sounds, Right: Clear and Equal Nausea/Vomiting: Denies RUQ Epigastric Pain: Denies Lower Extremities Edema: Bilateral Lower Extremities Degree: None Upper Extremities Edema: None Degree: None Facial Edema: None Fall Risk Assessment History of Falling: (0) No Secondary Diagnosis: (0) No Ambulatory Aid: (0) Bedrest/Nurse Assist IV Therapy: (0) No Gait: (0) Normal/Bedrest/Immobile Mental Status: (0) Oriented to Own Ability Fall Score: 0 Fall Risk Score Definition: No Risk: No action required Datetime: 01/07/2017 12:26 Time of Arrival: 01/07/2017 12:00 EGA: 21.1 Arrived By: Ambulatory Arrived From: Home Chief Complaint: HEADACHE, DIZINESS, BLURRY VISION, VISION SPOTS SINCE YESTERDAY. NO BLURRY VISION OR VISION SPOTS TODAY Movement: Decreased Contractions: Denies/Absent Rupture of Membranes: Denies Vaginal Bleeding: None Vaginal Discharge: Denies Recent Sexual Intercouse: Denies Abdominal Trauma: Not Applicable Patient Complaints: Cramping Time Provider Notified: 01/07/2017 12:18 Provider Notified: CHRISTIANE Initial Plan: ANTHONY, U/A, CBC, CMP, URIC ACID, CERVICAL LENGHT. PO HYDRATION Datetime: 01/07/2017 12:23 Stage of : OB Triage Pain Presence: Intermittent Pain Type: Cramping; Ache Pain Location: Abdomen; Head Pain Relief Measures: Comfort Measures Datetime: 01/07/2017 12:14 Stage of : OB Triage Heart Rate Comments: UNABLE TO GET FHT FROM EXT. U/S OR DOPPLER DUE TO GEST. AGE AND MATERNAL OBESITY.
--- NOTE | 2017-01-07 18:11 | QN ---
Documentation Comment iup 21 weeks co fo SORIA vss exam wnl labs wnl a/p iup 21 weeks SORIA/tylenol po hydration dc home HARVEY DRUMMOND MD Jan 07, 2017 18:11
== END 2017-01-07 16:30 | disposition home or self-care (01) ==
LOC: OBT 12:04 → L-D 12:04 → OBT 16:30
PROVIDERS: ATTEND Obstetrics & Gynecology
DX: O26.892 Other specified pregnancy related conditions, second trimester (principal); Z3A.21 21 weeks gestation of pregnancy; R51 Headache; R42 Dizziness and giddiness
CPT/HCPCS: 76815; 76817; 80053; 81001; 84560; 85025; Z7500; Z7610; G0463

== ENCOUNTER 2017-02-28 19:38 | Outpatient (CLI) | payer OTHER ==
[~2017-02-28] VITALS: Ht 157.5 cm; Wt 117.9 kg
[~2017-02-28 19:38] MED LIST changes: -ACET1TAB16 PO; -ACET325T33 PO; -ACET500C5 PO; -AZIT250T94 PO; -CETI10CA PO; +FER325 PO; -GUAI120S26 PO; -IBUP-1542 PO; -LORA-441 PO; -ZOF8 PO
[2017-02-28 20:07] VITALS: BP 129/58; PULSE 90; RESP 18; Ht 157.5 cm; Wt 117.9 kg
[2017-02-28 21:06] LABS: ADD UMIC NO; UR ASCORBIC ACID NEGATIVE (NEGATIVE); UR BILIRUBIN (Dip) NEGATIVE (NEGATIVE); UR BLOOD (Dip) NEGATIVE (NEGATIVE); UR CLARITY CLEAR (CLEAR); UR COLOR YELLOW (YELLOW); UR GLUCOSE (Dip) NEGATIVE (NEGATIVE); UR KETONES (Dip) NEGATIVE (NEGATIVE); UR LEUKOCYTE ESTERASE (Dip) NEGATIVE Leu/ul (NEGATIVE); UR NITRITE (Dip) NEGATIVE (NEGATIVE); UR SPECIFIC GRAVITY (Dip) 1.011 (1.003-1.030); UR TOTAL PROTEIN (Dip) NEGATIVE (NEGATIVE); UR UROBILINOGEN (Dip) NEGATIVE (NEGATIVE)
--- NOTE | 2017-02-28 21:44 | RADRPT ---
PROCEDURE: US OB. CLINICAL INDICATION: Ruptured membranes TECHNIQUE: Multiple sonographic images of the pelvis were obtained. Transabdominal imaging only w as performed. The images were reviewed on a PACS workstation. COMPARISON: No prior studies are available for comparison. FINDINGS: Single intrauterine gestation. Breech presentation. heart rate is 154 bpm. Measurements were made in order to determine age. The results are as follows: BPD = 7.22 cm HC = 26.53 cm AC = 26.98 cm FL = 5.39 cm Gestational age is 29 weeks 3 days and AKSHAT is 05/13/2017 by ultrasound criteria. Gestational age is 28 weeks 5 days and AKSHAT is 05/18/2017 by LMP. EFW = 1475 g +/- 221 g (81 %). The placenta is anterior. There is no evidence for an abruption or placenta previa. IMPRESSION: 1. Single live intrauterine gestation of approximately 29 weeks 3 days by ultrasound criteria. RPTAT: HDWR .Elvis Unger MD, MD Date Time Electronically viewed and signed by .Elvis Unger MD, on 02/28/2017 21:43 .R/
--- NOTE | 2017-02-28 21:50 | RADRPT ---
PROCEDURE: OB ultrasound for biophysical profile CLINICAL INDICATION: Possible rupture of membranes. TECHNIQUE: Multiple sonographic images of the gravid uterus performed. The images were reviewed on a PACS workstation. COMPARISON: 01/07/2017 FINDINGS: A single live intrauterine is identified with heart rate of 146 bpm. Fet us is in a breech presentation. Placenta is located anterior. Biophysical profile: breathing movement = 2/2 tone = 2/2 motion = 2/2 ANTHONY = 2/2 ANTHONY = 15.7 cm. Cervix is 4.1 cm in length and closed. IMPRESSION: 1. Single live intrauterine gestation. 2. Biophysical profile = 8/8. 3. ANTHONY = 15.7 cm. 4. Breech presentation. RPTAT: HMVK .Kenneth Cheney MD, MD Date Time Electronically viewed and signed by .Kenneth Cheney MD, MD on 02/28/2017 21:49 .K/
--- NOTE | 2017-02-28 22:23 | PN ---
Triage Information Date/Time Feb Reason for visit: SROM Weeks of Gestation 28w 4d /Para 6/3 Diabetes: none Hypertention: none Additional information Pt reported feeling dizzy and with some shortness of breath and thinks she was leaking. PMHx: Obesity. PSHx: x 2. Cholecystectomy. NKDA. Objective Vital Signs Date Time Temp Pulse Resp B/P Pulse Ox O2 Delivery O2 Flow Rate FiO2 02/28/17 20:07 98.5 90 18 129/58 Room Air Heart Rate: 130's Heart Rate Comments Accels to 150 bpm. No decels. Contractions: None Exam Close/thick/high. Results/Medications Results 24 hrs Laboratory Tests Test 02/28/17 20:20 02/28/17 20:30 Membranes Rupture NEGATIVE Fibronectin NEGATIVE Urine Color YELLOW Urine Clarity CLEAR Urine pH 6.0 Urine Specific [place] 1.011 Urine Ketones NEGATIVE Urine Nitrite NEGATIVE Urine Bilirubin NEGATIVE Urine Urobilinogen NEGATIVE Urine Leukocyte Esterase NEGATIVE Urine Hemoglobin NEGATIVE Urine Glucose NEGATIVE Urine Total Protein NEGATIVE Imaging Results EFW 1475 grams. BREECH. Anterior placenta. Disposition: Discharge Assessment/Plan A: IUP at 28w 4d. False labor. Intact membranes. P: D/C home. PTL precautions reviewed. Follow-up with her MD as scheduled on 03/13. ANALIA BRADLEY MD Feb 28, 2017 22:23
--- NOTE | 2017-02-28 22:39 | TRIAGE ---
OB Triage Datetime Report Generated by CPN: 02/28/2017 22:38 Datetime: 02/28/2017 22:00 Labor Evaluation Frequency: 0 Monitor Mode: External Heart Rate FHR Baseline Rate: 135 Monitor Mode: External US FHR Baseline Changes: No Baseline Change Variability: Moderate 6-25 bpm Accelerations: 15X15 Decelerations: None Category: Category I Datetime: 02/28/2017 21:00 Labor Evaluation Frequency: 0 Monitor Mode: External Heart Rate FHR Baseline Rate: 135 Monitor Mode: External US FHR Baseline Changes: No Baseline Change Variability: Moderate 6-25 bpm Accelerations: 15X15 Decelerations: None Category: Category I Datetime: 02/28/2017 20:20 Stage of : OB Triage Vaginal Exam Dilatation (cms): 0.0 Effacement (%): 0 Station: -3 Exam By: Dayne DE LEÓN RN Vaginal Bleeding: None Pool: Negative Nitrazine: Negative ROM Test Kit: Negative Cervix, Consistency: Firm Cervix, Position: Posterior Datetime: 02/28/2017 19:58 Stage of : OB Triage Time of Arrival: 02/28/2017 19:28 EGA: 28.4 Arrived By: Wheelchair Arrived From: Home Chief Complaint: PT THINKS SHE MAY BE SROM Contractions: Denies/Absent Rupture of Membranes: Unsure Vaginal Bleeding: None Vaginal Discharge: Present Recent Sexual Intercouse: Denies Abdominal Trauma: Not Applicable Patient Complaints: None Time Provider Notified: 02/28/2017 20:36 Provider Notified: DR GRANDE Initial Plan: CALL CARLINE PANDEY Maternal Assessment Level of Consciousness: Fully Conscious DTR's/Clonus: DTRs 2+; No Clonus Headache: Denies Blurred Vision: No Respiratory Effort: Unlabored; Regular Rhythm; Equal Expansion Breath Sounds, Left: Clear and Equal Breath Sounds, Right: Clear and Equal Nausea/Vomiting: Denies RUQ Epigastric Pain: Denies Lower Extremities Edema: None Degree: None Upper Extremities Edema: None Degree: None Facial Edema: None Temperature Route: Oral Fall Risk Assessment History of Falling: (0) No Secondary Diagnosis: (0) No Ambulatory Aid: (0) Bedrest/Nurse Assist IV Therapy: (0) No Gait: (0) Normal/Bedrest/Immobile Mental Status: (0) Oriented to Own Ability Fall Score: 0 Fall Risk Score Definition: No Risk: No action required Monitor Mode: External Monitor Mode: External US Pain Assessment Pain Presence: None/Denies Datetime: 01/07/2017 16:05 Pain Assessment Pain Presence: None/Denies Datetime: 01/07/2017 12:27 Fall Score: 0 Fall Risk Score Definition: No Risk: No action required Datetime: 01/07/2017 12:26 EGA: 21.1
== END 2017-02-28 22:20 | disposition home or self-care (01) ==
LOC: OBT 19:38 → L-D 19:41 → OBT 22:20
PROVIDERS: ATTEND Obstetrics & Gynecology
DX: O42.913 Preterm premature rupture of membranes, unspecified as to length of time between rupture and onset of labor, third trimester (principal); O26.892 Other specified pregnancy related conditions, second trimester; R42 Dizziness and giddiness; R06.02 Shortness of breath; O99.212 Obesity complicating pregnancy, second trimester; O34.219 Maternal care for unspecified type scar from previous cesarean delivery; Z3A.28 28 weeks gestation of pregnancy
CPT/HCPCS: 76815; 76817; 76818; 81003; 82731; 84112; 87086; Z7500; G0463

== ENCOUNTER 2017-04-25 17:49 | Outpatient (CLI) | END 2017-04-25 20:45 | disposition home or self-care (01) ==

== ENCOUNTER 2017-05-13 12:22 | Inpatient (IN) | END 2017-05-16 18:55 | disposition home or self-care (01) | DRG 766 ==